=== PATIENT | male | born 1935 | race Caucasian/White ===

== ENCOUNTER 2016-08-03 17:51 | Emergency (ER) | payer MEDICARE, BC ==
[2016-08-03 18:16] VITALS: BP 158/74
--- NOTE | 2016-08-03 19:02 | UC ---
Shortness of Breath HPI - HPI Summary HPI Summary: The patient comes in today for: 1. Shortness of breath: Onset: 2 days ago. Palliative/provocative: Body position makes it worse--laying on the right side does lead to more wheezing. Quality: Dyspnea Region: Lungs. Severity: 10 Time: Constant. Associated symptoms: Event: He was shoveling snow about 2 days ago and had to stop shoveling due to shortness of breath. Exercise limitation: Previous exercise tolerance: Before he had shortness of breath, he was able to climb a flight of steps without shortness of breath. Now, he can still climb a flight of steps, but is short of breath at the top of the stairs. Fever: At home, yesterday, it was 99.1. Today, it was 100.3. Cough: He denies any coughing now compared to before. Rhinitis: None. Previous lung disease: He states that he has had asthma in the past. He is not on any inhalers at this time, and has not had any asthma episodes for "years." Heart disease: He states that he has HTN, mitral valve "might have been a problem" No stents or bypasses. He states that he has "an angiogram and it was all clear--done in a couple of years ago." He denies any previous NV or heart failure. Yet, he states that he was put on a medication which reduced the size of the heart. And he is on digoxin for reasons that he can't explain. He states that he is on Xarelto for transient atrial fibrillation. He denies any peripheral edema, or increase in his weight. He has shortness of breath, but he is not able to tell me if it is worse with laying down. * - History of Current Complaint Chief Complaint: UCRespiratory Stated Complaint: S.O.B. Time Seen by Provider: 08/03/16 18:48 Hx Obtained From: Patient - Allergy/Home Medications Allergies/Adverse Reactions: Allergies Allergy/AdvReac Type Severity Reaction Status Date / Time tape AdvReac Itching Uncoded 08/03/16 18:06 Home Medications: Home Medications Epleronone (NF) [Inspra (NF)] 0.5 tab PO QAM 08/03/16 [History Confirmed ] PMH/Surg Hx/FS Hx/Imm Hx Previously Healthy: No Endocrine History Of: Reports: Dyslipidemia Denies: Diabetes, Thyroid Disease, Hyperthyroidism, Hypothyroidism Cardiovascular History Of: Reports: Cardiac Disorders - PACE MAKER, VALVE PROBLEMS, history of transient a-fib, Hypertension, Pacemaker/ICD - 04/08/2013, Congestive Heart Failure - On digoxin, though the patient states that he does not have CHF., Atrial Fibrillation - transient. Denies: Myocardial Infarction, Deep Vein Thrombosis, Bleeding Disorders Respiratory History Of: Reports: Asthma - On singulair. Denies: COPD, Bronchitis, Pneumonia, Pulmonary Embolism GI/ History Of: Denies: Gastroesophageal Reflux, Ulcer, Gastrointestinal Bleed, Gall Bladder Disease, Kidney Stones, Diverticulitis, Renal Disease, Urosepsis Neurological History Of: Denies: TIA, CVA, Dementia, Seizures, Migraine Psychological History Of: Denies: Anxiety, Depression, Bipolar Disorder, Schizophrenia, Post Traumatic Stress Disorder Cancer History Of: Denies: Lung Cancer, Colorectal Cancer, Breast Cancer, Prostate Cancer, Cervical Cancer Other History Of: Anticoagulant Therapy - Xarelto. Negative For: HIV, Hepatitis B, Hepatitis C - Surgical History Surgical History: Yes Surgery Procedure, Year, and Place: SINUS SURGERY AROUND 1994 LEFT POLYP REMOVED. 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 - Family History Known Family History: Negative: Cardiac Disease, Hypertension - Social History Occupation: Retired Alcohol Use: None Substance Use Type: None Smoking Status (MU): Never Smoked Tobacco - Immunization History Most Recent Influenza Vaccination: 2011 Most Recent Tetanus Shot: <5years Most Recent Pneumonia Vaccination: unknown Review of Systems Constitutional: Negative Skin: Negative Eyes: Negative ENT: Negative Respiratory: Shortness Of Breath, Cough Cardiovascular: Negative Gastrointestinal: Negative Genitourinary: Negative All Other Systems Reviewed And Are Negative: Yes Physical Exam Triage Information Reviewed: Yes Appearance: Well-Appearing, No Pain Distress, Well-Nourished Vital Signs: Initial Vital Signs Temp 101.7 F 08/03/16 18:10 Pulse 99 08/03/16 18:10 Resp 16 08/03/16 18:10 BP 158/74 08/03/16 18:10 Pulse Ox 95 08/03/16 18:10 Vital Signs Reviewed: Yes Eyes: Positive: Conjunctiva Clear. Negative: Discharge ENT: Positive: Hearing grossly normal. Negative: Pharyngeal erythema, Nasal drainage, TM bulging, TM dull, TM red, Tonsillar swelling, Tonsillar exudate Dental: Negative: Gross Decay/Caries @, Dental Fracture @ Neck: Positive: Supple, Nontender, No Lymphadenopathy, Other: - No JVD at 30 degrees up from the horizontal. There is no HJR.. Negative: Nuchal Rigidity Respiratory: Positive: Lungs clear, No respiratory distress, No accessory muscle use. Negative: Crackles, Wheezing Cardiovascular: Positive: RRR, No Murmur Abdomen Description: Positive: Nontender, No Organomegaly, Soft. Negative: Distended, Guarding Musculoskeletal: Positive: Strength Intact, ROM Intact, No Edema Neurological: Positive: Alert, Muscle Tone Normal Psychological: Positive: Age Appropriate Behavior, Consolable Skin: Negative: rashes, breakdown Diagnostics - Laboratory Diagnostic Studies Completed/Ordered: CXR: IMPRESSION: INFILTRATE OVERLYING THE RIGHT LUNG AND RIGHT HILUM COULD REPRESENT PNEUMONIA IN THE. CORRECT CLINICAL SETTING. FOLLOW-UP IMAGING AFTER AN APPROPRIATE COURSE OF THERAPY IS. RECOMMENDED TO ASCERTAIN RESOLUTION. Shortness of Breath Dx - Course Course Of Treatment: Patient was told that his CXR showed pneumonia. He is not confused, but his BUN was greater than 19 in May of 2016. His respiratory rate is less than 30 and his blood pressure is higher than 90/60. He is older than 65 though. Based on this CURB65 score, I suggested that the patient be evaluated in the ER. - Differential Dx/Diagnosis Provider Diagnoses: Pneumonia. - Physician Notification/Consults Discussed Patient Care With: Mi Pagan Time Discussed With Above Provider: 20:02 Discharge - Discharge Plan Condition: Stable Disposition: AGAINST MEDICAL ADVICE Patient Education Materials: Community Acquired Pneumonia (ED) Additional Instructions: Please go directly to the [facility] ER.
[2016-08-03] MEDS ORDERED: Albuterol/Ipratropium NEB.SOL* Albuterol 2.5 MG/Ipratropium 0.5 MG 3 ML INH ONE (19:15)
[2016-08-03] MEDS ORDERED: Albuterol 2.5 MG/3 ML NEB.SOL* (0.083%) ONE (19:24)
[2016-08-03] MEDS ORDERED: Ipratropium 0.5MG/2.5ML NEB* 0.5 MG/2.5 ML NEB.SOLN ONE (19:24)
[2016-08-03] MEDS ORDERED: Ipratropium 0.5MG/2.5ML NEB* 0.5 MG/2.5 ML NEB.SOLN INH ONE (19:36)
[2016-08-03] MEDS ORDERED: Albuterol 2.5 MG/3 ML NEB.SOL* (0.083%) INH ONE (19:37)
--- NOTE | 2016-08-03 19:41 | RAD ---
INDICATION: Dyspnea COMPARISON: Most recent comparison chest x-rays dated April 09, 2013 TECHNIQUE: PA and lateral views of the chest were obtained. FINDINGS: There is been no change in the left upper chest cardiac pacemaker with 2 leads overlying the heart. The heart and mediastinum are normal in size and contour. There is been interval appearance of infiltrate overlying the right upper lung. Similar density is seen along the lateral margin of the right hilum. There is no evidence of large pleural effusion. Visualized bones are normal for the patient's age. There is no radiographic evidence of free air beneath the diaphragm IMPRESSION: INFILTRATE OVERLYING THE RIGHT LUNG AND RIGHT HILUM COULD REPRESENT PNEUMONIA IN THE CORRECT CLINICAL SETTING. FOLLOW-UP IMAGING AFTER AN APPROPRIATE COURSE OF THERAPY IS RECOMMENDED TO ASCERTAIN RESOLUTION.
== END 2016-08-03 20:20 | disposition left against medical advice (07) ==
LOC: UCEAST 17:51
DX: J18.9 Pneumonia, unspecified organism (principal); E78.5 Hyperlipidemia, unspecified; I10 Essential (primary) hypertension; I50.9 Heart failure, unspecified
CPT/HCPCS: 71020; 93005; 99212; G0463; J7644

== ENCOUNTER 2016-08-03 20:48 | Emergency (ER) | payer MEDICARE, BC ==
[2016-08-03] MEDS ORDERED: Ondansetron ODT TAB* 4 MG PO ONE (20:56)
[2016-08-03] MEDS ORDERED: cefTRIAXone(*) 2 GM in NS 0.9% 100 ML* 100 ML IVPB ONE (21:08)
--- NOTE | 2016-08-03 21:16 | ED ---
Shortness of Breath - HPI Summary HPI Summary: Patient presents for evaluation of shortness of breath with exertion for the last 3 days. Patient felt congested for 2 days with dyspnea on exertion while shoveling snow. He had not experienced this during this winter, then today went to a walk in [place] and felt chills with temperature of 102.7F (oral). CXR performed at [facility] in [place] with directions to have ED evaluation. No allev factors, recent hospitalization, antipyretics, or antibiotics. - History of Current Complaint Chief Complaint: EDGeneral Time Seen by Provider: 08/03/16 20:56 Hx Obtained From: Patient Onset/Duration: Gradual Onset Timing: Constant Current Severity: Moderate Dyspnea At: Exertion Associated Signs & Symptoms: Chills - Allergy/Home Medications Allergies/Adverse Reactions: Allergies Allergy/AdvReac Type Severity Reaction Status Date / Time No Known Allergies Allergy Verified 08/03/16 20:56 PMH/Surg Hx/FS Hx/Imm Hx Endocrine/Hematology History: Reports: Hx Anticoagulant Therapy - Xarelto. Denies: Hx Diabetes, Hx Thyroid Disease Cardiovascular History: Reports: Hx Congestive Heart Failure - On digoxin, though the patient states that he does not have CHF., Hx Hypertension, Hx Pacemaker/ICD - 04/08/2013 Denies: Hx Deep Vein Thrombosis, Hx Myocardial Infarction Respiratory History: Reports: Hx Asthma - On singulair. Denies: Hx Chronic Obstructive Pulmonary Disease (COPD), Hx Lung Cancer, Hx Pneumonia, Hx Pulmonary Embolism GI History: Denies: Hx Gall Bladder Disease, Hx Gastrointestinal Bleed, Hx Ulcer, Hx Urosepsis History: Denies: Hx Dialysis, Hx Kidney Stones, Hx Renal Disease Musculoskeletal History: Reports: Hx Arthritis Sensory History: Reports: Hx Contacts or Glasses, Hx Hearing Aid - BILATERAL Opthamlomology History: Reports: Hx Contacts or Glasses Neurological History: Reports: Other Neuro Impairments/Disorders - subdural hematoma- Dr. Meade pt. 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 Infectious Disease History: No Infectious Disease History: Denies: Hx Clostridium Difficile, Hx Hepatitis, Hx Human Immunodeficiency Virus (HIV), Hx of Known/Suspected MRSA, Hx Shingles, Hx Tuberculosis, Hx Known/ Suspected VRE, Hx Known/Suspected VRSA, History Other Infectious Disease, Traveled Outside the [place] in Last 30 Days - Family History Known Family History: Negative: Cardiac Disease, Hypertension - Social History Alcohol Use: None Substance Use Type: Reports: None Smoking Status (MU): Never Smoked Tobacco Review of Systems Positive: Chills. Negative: Fever Positive: Shortness Of Breath. Negative: Cough All Other Systems Reviewed And Are Negative: Yes Physical Exam Triage Information Reviewed: Yes Vital Signs On Initial Exam: Initial Vitals Temp Pulse Resp BP Pulse Ox 98.5 F 82 18 171/52 100 08/03/16 20:52 08/03/16 20:52 08/03/16 20:52 08/03/16 20:52 08/03/16 20:52 Vital Signs Reviewed: Yes Appearance: Positive: Well-Appearing, No Pain Distress, Well-Nourished Skin: Positive: Warm, Skin Color Reflects Adequate Perfusion, Dry Eyes: Positive: Normal, EOMI ENT: Positive: Normal ENT inspection, Hearing grossly normal, Pharynx normal Neck: Positive: Supple, Nontender, No Lymphadenopathy Respiratory/Lung Sounds: Positive: Clear to Auscultation, Decreased Breath Sounds - Bibasilar diminshed breath sounds., Other - L anterior chest wall pacemaker site is nontender. Cardiovascular: Positive: Pulses are Symmetrical in both Upper and Lower Extremities - Paced rhythm Abdomen Description: Positive: Nontender, No Organomegaly, Soft Musculoskeletal: Positive: Normal, Strength/ROM Intact. Negative: Edema Left, Edema Right Neurological: Positive: Normal, Sensory/Motor Intact, Alert, Oriented to Person Place, Time, CN Intact II-III, Reflexes Intact, Normal Gait Diagnostics - Vital Signs Vital Signs Temp Pulse Resp BP Pulse Ox 08/03/16 20:52 98.5 F 82 18 171/52 100 - Laboratory Result Diagrams: 08/03/16 21:40 08/03/16 21:40 Lab Statement: Any lab studies that have been ordered have been reviewed, and results considered in the medical decision making process. Course/Dx - Course Course Of Treatment: I discussed the case with the equipment validation engineer PCP since patient was deferring admission. Night time hospitalist was happy to admit; however, patient again deferred when we both discussed the case with the patient. Return instructions given. - Diagnoses Differential Diagnosis/HQI/PQRI: Positive: CHF, Pneumonia, Unstable Angina, Other - Primary concern for clinical pneumonia with subjective chills, objective fever, diminshed breath sounds, and new MEDLEY. High PORT score and will evaluate for observation admission. Provider Diagnoses: Pneumonia Discharge - Discharge Plan Condition: Improved Disposition: HOME Prescriptions: Amoxicillin CAP* 1,000 mg PO TID 10 Days DOXYcycline CAP(*) [DOXYcycline 100MG CAP(*)] 100 mg PO BID 10 Days Patient Education Materials: Bacterial Pneumonia (ED) Referrals: Woody Curtis MD [Primary Care Provider] - 2 Days
[2016-08-03] MEDS ORDERED: NS 0.9% 1000 ML* 1,000 ML IV ONE (21:47)
[2016-08-03 21:54] LABS: Hematocrit 39 % (42-52); Hemoglobin 13.1 g/dl (14.0-18.0); Mean Corpuscular HGB Conc 34 g/dl (31-36); Mean Corpuscular Hemoglobin 30 pg (27-31); Mean Corpuscular Volume 89 fL (80-94); Mean Platelet Volume 8 um3 (7.4-10.4); Red Blood Count 4.38 10^6/ul (4.0-5.4); Red Cell Distribution Width 14 % (10.5-15); White Blood Count 6.8 10^3/ul (3.5-10.8)
[2016-08-03 22:07] LABS: BUN/Creatinine Ratio 17.1 (8-20); Calcium 8.8 mg/dL (8.6-10.3); EGFR African American 62.6 (>60); EGFR Non-African American 48.6 (>60)
[2016-08-03 22:09] LABS: Troponin I 0.01 ng/mL (<0.04)
--- NOTE | 2016-08-03 22:27 | RAD ---
INDICATION: Shortness of breath COMPARISON: Same day chest x-ray demonstrating possible right lung infiltrate. TECHNIQUE: Axial source images of the chest were acquired without intravenous contrast from just above the lung apices to the base of the diaphragm. Coronal and sagittal reconstructed images were acquired. FINDINGS: Corresponding to findings on the same day chest x-ray there are patchy infiltrates in the right upper lobe. Elsewhere the lungs are adequately aerated. The heart is normal in size. There is no evidence of pericardial effusion. There is no evidence of aortic aneurysm or dissection. 2-lead left upper chest cardiac pacemaker appears to be appropriately position. There is no readily apparent mediastinal, hilar, or axillary lymphadenopathy. The osseous structures appear normal. Calcified granulomas are noted in the liver and spleen. Along the lateral mid level right kidney there is an exhibit phasic solid nodule measuring approximately 2 cm (axial image 58 and coronal image 59). 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 IMPRESSION: 1. Corresponding to images of the same day chest x-ray there are patchy infiltrates in the right upper lobe. An infectious or inflammatory etiology is considered most likely but follow-up imaging after an appropriate course of therapy is advised to ascertain resolution. 2. There is a soft tissue density is a vague nodule along the lateral aspect of the right kidney. There are no previous CTs for comparison to comment on chronicity. On a nonemergent basis further characterization of this nodule and the patient's renal cysts can be made with renal ultrasound. 3. 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
[2016-08-03] MEDS ORDERED: Albuterol HFA INHALER* 8 gm MDI INH ONE (22:47)
[2016-08-03 23:16] VITALS: BP 122/43
== END 2016-08-03 23:26 | disposition home or self-care (01) ==
LOC: ED 20:48
DX: J18.9 Pneumonia, unspecified organism (principal); R68.83 Chills (without fever); R06.02 Shortness of breath
CPT/HCPCS: 36415; 71020; 71250; 80048; 83605; 83880; 84484; 85025; 87040; 93005; 99212; 99283; A9270-GY; G0463; J0696; J7644

== ENCOUNTER 2016-11-14 17:27 | Emergency (ER) | payer MEDICARE, BC ==
[2016-11-14 18:14] VITALS: BP 147/56
--- NOTE | 2016-11-14 18:47 | UC ---
Throat Pain/Nasal Larry HPI - HPI Summary HPI Summary: complaint of nasal congestion and cough that started approx 2 days ago productive cough sometimes yellowish sputum mild sore throat for 1 day, feesl like his chest feesl tight- denies shortness of breath and chest pain, edema dizziness denies fever and chills, headaches, fatigue recent pneumonia end of july with similiar symptoms- tx with amox and doxy Dr Curtis - History of Current Complaint Chief Complaint: UCRespiratory Stated Complaint: COUGH, AND CHEST CONGESTION Time Seen by Provider: 11/14/16 18:39 Hx Obtained From: Patient - Allergies/Home Medications Allergies/Adverse Reactions: Allergies Allergy/AdvReac Type Severity Reaction Status Date / Time No Known Allergies Allergy Verified 11/14/16 18:14 PMH/Surg Hx/FS Hx/Imm Hx Previously Healthy: Yes Endocrine History Of: Reports: Dyslipidemia Denies: Diabetes, Thyroid Disease, Hyperthyroidism, Hypothyroidism Cardiovascular History Of: Reports: Cardiac Disorders, Hypertension, Pacemaker/ ICD, Congestive Heart Failure - On digoxin, though the patient states that he does not have CHF., Atrial Fibrillation - transient. Denies: Myocardial Infarction, Deep Vein Thrombosis, Bleeding Disorders Respiratory History Of: Reports: COPD Denies: Asthma, Bronchitis, Pneumonia, Pulmonary Embolism GI/ History Of: Denies: Gastroesophageal Reflux, Ulcer, Gastrointestinal Bleed, Gall Bladder Disease, Kidney Stones, Diverticulitis, Renal Disease, Urosepsis Neurological History Of: Denies: TIA, CVA, Dementia, Seizures, Migraine Psychological History Of: Denies: Anxiety, Depression, Bipolar Disorder, Schizophrenia, Post Traumatic Stress Disorder Cancer History Of: Denies: Lung Cancer, Colorectal Cancer, Breast Cancer, Prostate Cancer, Cervical Cancer Other History Of: Anticoagulant Therapy - Xarelto. Negative For: HIV, Hepatitis B, Hepatitis C - Surgical History Surgical History: Yes Surgery Procedure, Year, and Place: SINUS SURGERY AROUND 1994 LEFT POLYP REMOVED. 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 - Family History Known Family History: Negative: Cardiac Disease, Hypertension, Diabetes - Social History Occupation: Retired Lives: With Family Alcohol Use: None Substance Use Type: None Smoking Status (MU): Never Smoked Tobacco - Immunization History Most Recent Influenza Vaccination: 2011 Most Recent Tetanus Shot: <5years Most Recent Pneumonia Vaccination: unknown Review of Systems Constitutional: Negative Skin: Negative Eyes: Negative ENT: Nasal Discharge Respiratory: Cough Cardiovascular: Negative Gastrointestinal: Negative Genitourinary: Negative Motor: Negative Neurovascular: Negative Musculoskeletal: Negative Neurological: Negative Psychological: Negative All Other Systems Reviewed And Are Negative: Yes Physical Exam Triage Information Reviewed: Yes Appearance: No Pain Distress, Well-Nourished, Thin Vital Signs: Initial Vital Signs Temp 98.8 F 11/14/16 18:06 Pulse 73 11/14/16 18:06 Resp 20 11/14/16 18:06 BP 147/56 11/14/16 18:06 Pulse Ox 99 11/14/16 18:06 Vital Signs Reviewed: Yes Eyes: Positive: Conjunctiva Clear ENT: Positive: Pharynx normal, Nasal congestion, Nasal drainage, TMs normal, Other: - [place] wears bilateral hearing aides Neck: Positive: No Lymphadenopathy Respiratory: Positive: Decreased breath sounds. Negative: Rhonchi, Stridor, Wheezing Cardiovascular: Positive: RRR, No Murmur, Pulses Normal Abdomen Description: Positive: Nontender, Soft Bowel Sounds: Positive: Present Musculoskeletal: Positive: No Edema Neurological: Positive: Alert Psychological Exam: Normal Skin Exam: Normal Throat Pain/Nasal Course/Dx - Differential Dx/Diagnosis Differential Diagnosis/HQI/PQRI: URI, Other - bronchitis, pneumonia Provider Diagnoses: bronchitis Discharge - Discharge Plan Condition: Stable Disposition: HOME Patient Education Materials: Acute Bronchitis (ED) Referrals: Woody Curtis MD [Primary Care Provider] - Additional Instructions: Increase fluids and rest Take acetaminophen for fever or pain Please review your discharge instructions. If your symptoms do not improve please call your primary care provider or return to urgent care.
--- NOTE | 2016-11-14 19:16 | RAD ---
INDICATION: Cough COMPARISON: Most recent comparison chest x-rays dated September 03, 2016 TECHNIQUE: PA and lateral views of the chest were obtained. FINDINGS: Left upper chest cardiac pacemaker with 2 leads overlying the heart is stable. The heart and mediastinum are normal in size and contour. There is mild peribronchial cuffing. The lungs are grossly clear. There is no evidence of large pleural effusion. Visualized bones are normal for the patient's age. There is no radiographic evidence of free air beneath the diaphragm IMPRESSION: MILD PERIBRONCHIAL THICKENING OF THE CENTRAL AIRWAYS COULD BE SEEN IN THE SETTING OF BRONCHITIS OR VIRAL PNEUMONIA.
== END 2016-11-14 19:30 | disposition home or self-care (01) ==
LOC: UCEAST 17:27
DX: J40 Bronchitis, not specified as acute or chronic (principal); E78.5 Hyperlipidemia, unspecified; I10 Essential (primary) hypertension; I50.9 Heart failure, unspecified; I48.91 Unspecified atrial fibrillation; Z79.01 Long term (current) use of anticoagulants; Z95.0 Presence of cardiac pacemaker
CPT/HCPCS: 71020; 99211; G0463

== ENCOUNTER 2018-02-02 07:05 | Day surgery (SDC) | payer MEDICARE, BC ==
[~2018-02-02 07:05] MED LIST: Buffered Lidocaine 0.9% SYRIN* 5 ML/SYR SYRINGE INTRADERM ONE
[2018-02-02] MEDS ORDERED: Phenylephrine 2.5% OPTH.SOL* 2 ML BTL ONE (07:57)
[2018-02-02] MEDS ORDERED: Tetracaine 0.5% OPTH.SOL 4 ML* 1 DROP BTL ONE (07:57)
[2018-02-02] MEDS ORDERED: Povidone Iodine 5% OPTH* 30 ML BTL ONE (07:57)
[2018-02-02] MEDS ORDERED: acetaZOLAMIDE TAB* 250 MG ONE (07:57)
[2018-02-02] MEDS ORDERED: Cyclopentolate 1% OPTH.SOL* 2 ML BTL ONE (07:57)
[2018-02-02] MEDS ORDERED: Neomycin/Polymy/Dex OPHTH.OIN* 3.5 GM ONE (07:57)
[2018-02-02] MEDS ORDERED: Lidocaine 1%* 5 ML VIAL ONE (07:57)
[2018-02-02] MEDS ORDERED: Tropicamide 1% OPTH.SOL* BTL ONE (07:57)
[2018-02-02] MEDS ORDERED: Ketorolac 0.5% OPHTH (NF) 0.5 % 5 ML BTL ONE (07:57)
[2018-02-02] MEDS ORDERED: Midazolam* 1 MG/ML 2 ML VIAL (2 MG) ONE (08:00)
[2018-02-02 09:10] VITALS: BP 144/70
--- NOTE | 2018-02-02 22:00 | OP ---
OPERATIVE REPORT: DATE OF OPERATION: 02/02/18 - HARI DATE OF : 35 SURGEON: Pradeep Stock MD ANESTHESIA: Monitored anesthesia care. PRE-OP DIAGNOSIS: Cataract, left eye. POST-OP DIAGNOSIS: Cataract, left eye. OPERATIVE PROCEDURE: Extracapsular cataract extraction of the left eye with intraocular lens implant. IMPLANTS: SN60WF 19.0 diopter lens to the left eye. COMPLICATIONS: None. DESCRIPTION OF PROCEDURE: The patient was given phenylephrine 2.5% and cyclopentolate 1% eye drops to the operative eye in the preoperative area. The patient was taken to the operating room where a time-out was taken to identify the correct patient, site, and side of surgery. The patient's left eye was prepped and draped in the usual sterile fashion with 5% Betadine. A second time -out was taken to verify the correct patient, site, and side of surgery, and correct lens implant. A lid speculum was placed to the left eye. A 1-mm paracentesis was created at the inferotemporal position. Preservative free 1% lidocaine was injected into the anterior chamber followed by DisCoVisc. A 2.75 mm triplanar incision was created at the superotemporal position. A cystotome initiated the capsulorrhexis, which was completed with Utrata forceps. Hydrodissection of the lens was performed with BSS on a cannula. The lens could be spun in the capsular bag. The phacoemulsification handpiece was used with a divide and conquer technique to remove to nucleus with 15.91 CDE. The I/ A handpiece then removed the residual cortical lens material. DisCoVisc was injected to inflate the capsular bag. The planned SN60WF 19.0 diopter lens was injected into the capsular bag. The residual DisCoVisc was removed from the eye with a I/A handpiece. The corneal incisions were hydrated and no leaks occurred at physiologic pressure around 20 mmHg per palpation. The lid speculum was removed and drapes removed. Maxitrol ointment was placed to the surface of the operative eye. An adhesive patch and shield was then placed on the operative eye. The patient was taken to the postoperative area in stable condition. [id number]/[facility] #: [id number] [facility]
== END 2018-02-02 09:17 | disposition home or self-care (01) ==
LOC: OREAST 07:05
PROVIDERS: ATTEND Student in an Organized Health Care Education/Training Program
DX: H25.12 Age-related nuclear cataract, left eye (principal); I48.91 Unspecified atrial fibrillation; Z79.01 Long term (current) use of anticoagulants; Z87.891 Personal history of nicotine dependence; I10 Essential (primary) hypertension; Z85.46 Personal history of malignant neoplasm of prostate; E78.5 Hyperlipidemia, unspecified; I42.9 Cardiomyopathy, unspecified; Z95.0 Presence of cardiac pacemaker; I34.0 Nonrheumatic mitral (valve) insufficiency
CPT/HCPCS: A9270-GY; J2250; V2632

== ENCOUNTER 2018-12-15 08:51 | Emergency (ER) | payer MEDICARE, BC ==
[2018-12-15 09:06] VITALS: BP 184/78
--- NOTE | 2018-12-15 09:53 | UC ---
Shoulder Pain HPI - HPI Summary HPI Summary: right shoulder pain x 1 day pain severe 5 out of 10 , worse with movement , better if in a sling sudden onset pain as he was pulling blanket on himself, felt a pop - History of Current Complaint Chief Complaint: UCUpperExtremity Stated Complaint: RT SHOULDER/ARM INJURY Time Seen by Provider: 12/15/18 09:02 Hx Obtained From: Patient Onset/Duration: Sudden Onset, Lasting Days - 1, Still Present Timing: Constant Severity Initially: Moderate Severity Currently: Moderate Pain Intensity: 5 Character: Aching Aggravating Factor(s): Movement, Lifting, Flexion, Extension Alleviating Factor(s): Rest, Other - sling Associated Signs And Symptoms: Negative: Swelling, Redness, Bruising, Fever, Weakness, Numbness/Tingling - Allergies/Home Medications Allergies/Adverse Reactions: Allergies Allergy/AdvReac Type Severity Reaction Status Date / Time No Known Allergies Allergy Verified 12/15/18 09:05 PMH/Surg Hx/FS Hx/Imm Hx Cardiovascular History: Cardiac Disease, Hypertension, Atrial Fibrillation Respiratory History: COPD, Asthma Other History Of: Anticoagulant Therapy - Xarelto. Negative For: HIV, Hepatitis B, Hepatitis C - Surgical History Surgical History: Yes Surgery Procedure, Year, and Place: SINUS SURGERY AROUND 1994 LEFT POLYP REMOVED. 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 pacemaker placed 3-4 years ago - Family History Known Family History: Negative: Cardiac Disease, Hypertension, Diabetes - Social History Alcohol Use: Occasionally Substance Use Type: None Smoking Status (MU): Former Smoker Amount Used/How Often: smoked for 20+ YEARS 1PPD When Did the Patient Quit Smoking/Using Tobacco: 1981 - Immunization History Most Recent Influenza Vaccination: 2011 Most Recent Tetanus Shot: <5years Most Recent Pneumonia Vaccination: unknown Review of Systems All Other Systems Reviewed And Are Negative: Yes Is Patient Immunocompromised?: No Physical Exam Triage Information Reviewed: Yes Appearance: Well-Appearing, No Pain Distress, Well-Nourished Vital Signs: Initial Vital Signs Temp 98.2 F 12/15/18 08:58 Pulse 70 12/15/18 08:58 Resp 18 12/15/18 08:58 BP 184/78 12/15/18 08:58 Pulse Ox 96 12/15/18 08:58 Vital Signs Reviewed: Yes Eye Exam: Normal Eyes: Positive: Conjunctiva Clear ENT: Positive: Normal ENT inspection, Hearing grossly normal, Pharynx normal Neck: Positive: Supple, Nontender, No Lymphadenopathy Respiratory: Positive: Chest non-tender, Lungs clear, Normal breath sounds Cardiovascular: Positive: RRR, No Murmur, Pulses Normal Musculoskeletal: Positive: Other: - right shoulder : no swelling, no erythema, mild diffuse tenderness, pain with flexion and extension, limite strength Diagnostics - Radiology No standard instances Radiology Interpretation Completed By: Radiologist Summary of Radiographic Findings: xray right shoulder : IMPRESSION: Degenerative changes of the glenohumeral joint. No fracture is identified. Shoulder Course/Dx - Differential Dx/Diagnosis Provider Diagnosis: Right shoulder injury Discharge - Sign-Out/Discharge Documenting (check all that apply): Patient Departure All imaging exams completed and their final reports reviewed: Yes - Discharge Plan Condition: Stable Disposition: HOME Patient Education Materials: Shoulder Pain (ED) Referrals: Nima Meza NP [Primary Care Provider] - Rhonda Saunders MD [Medical Doctor] - As Soon As Possible - Billing Disposition and Condition Condition: STABLE Disposition: Home
== END 2018-12-15 10:05 | disposition home or self-care (01) ==
LOC: UCEAST 08:51
DX: S49.91XA Unspecified injury of right shoulder and upper arm, initial encounter (principal); X50.0XXA Overexertion from strenuous movement or load, initial encounter; Y93.89 Activity, other specified; Y92.9 Unspecified place or not applicable; I10 Essential (primary) hypertension; I48.91 Unspecified atrial fibrillation; Z79.01 Long term (current) use of anticoagulants; Z87.891 Personal history of nicotine dependence
CPT/HCPCS: 99211; G0463

== ENCOUNTER 2020-02-02 18:02 | Inpatient (IN) ==
[2020-02-02 18:37] LABS: ABS Basophils 0.1 10^3/ul (0-0.2); ABS Eosinophils 0.7 10^3/ul (0-0.6); ABS Monocytes 0.9 10^3/ul (0-0.8); ABS Neutrophils 4.7 10^3/ul (1.5-7.7); Eosinophil % 9.4 %; Hematocrit 24 % (42-52); Hemoglobin 8.1 g/dL (14.0-18.0); Lymphocyte % 14.1 %; Mean Corpuscular HGB Conc 34 g/dL (31-36); Mean Corpuscular Hemoglobin 31 pg (27-31); Mean Corpuscular Volume 92 fL (80-94); Mean Platelet Volume 7.7 fL (7.4-10.4); Nucleated Red Blood Cells % 0.1; Platelet Count 259 10^3/uL (150-450); Red Blood Count 2.59 10^6 /uL (4.18-5.48); Red Cell Distribution Width 16 % (10-15); White Blood Count 7.5 10^3/uL (3.5-10.8)
[2020-02-02 18:55] LABS: ALT 11 U/L (7-52); AST 13 U/L (13-39); Albumin 3.7 g/dL (3.2-5.2); Albumin/Globulin Ratio 1.5 (1-3); Alkaline Phosphatase 56 U/L (34-104); BUN/Creatinine Ratio 29.7 (8-20); Blood Urea Nitrogen 49 mg/dL (6-24); C Reactive Protein < 1.00 mg/L (<8.01); CO2 Carbon Dioxide 23 mmol/L (22-32); Calcium 8.9 mg/dL (8.6-10.3); EGFR African American 48.3 (>60); EGFR Non-African American 39.9 (>60); Globulin 2.4 g/dL (2-4); Glucose 95 mg/dL (70-100); Sodium 138 mmol/L (135-145); Total Protein 6.1 g/dL (6.4-8.9)
[2020-02-02 19:00] LABS: Anion Gap 3 mmol/L (2-11); Chloride 112 mmol/L (101-111)
[2020-02-02] MEDS ORDERED: NS 0.9% 1000 ml BAG 1,000 ML IV ONE (19:01)
[2020-02-02 19:03] LABS: Activated Partial Thrombo Time 27.7 seconds (26.0-38.0); INR 1.07 (0.82-1.09)
[2020-02-02] MEDS ORDERED: Ondansetron 4 mg VIAL 2 MG/ML 2 ml VIAL IV PRN (20:03)
[2020-02-02] MEDS ORDERED: Al Hydrox/Mg Hydrox/Simet LIQ 30 ML UDC PO PRN (20:03)
[2020-02-02 20:53] LABS: % Iron Saturation 18 % (15-55); Iron 64 ug/dL (50-212); Total Iron Binding Capacity 353 mcg/dL (250-450); Transferrin 252 mg/dL (203-362); Unsaturated Iron Binding < 338 ug/dL
[2020-02-02] MEDS ORDERED: Pantoprazole VIAL 40 MG VIAL IV SCH (21:00)
[2020-02-02 21:18] LABS: Ferritin 28.1 ng/mL (24-336)
[2020-02-03] MEDS ORDERED: NS 0.9% 1000 ml BAG 1,000 ML IV SCH (04:15)
[2020-02-03 06:45] LABS: ABS Basophils 0.1 10^3/ul (0-0.2); ABS Eosinophils 0.5 10^3/ul (0-0.6); ABS Monocytes 0.6 10^3/ul (0-0.8); ABS Neutrophils 3.2 10^3/ul (1.5-7.7); Eosinophil % 9.4 %; Hematocrit 20 % (42-52); Hemoglobin 6.8 g/dL (14.0-18.0); Lymphocyte % 18.4 %; Mean Corpuscular HGB Conc 35 g/dL (31-36); Mean Corpuscular Hemoglobin 32 pg (27-31); Mean Corpuscular Volume 92 fL (80-94); Mean Platelet Volume 8.1 fL (7.4-10.4); Platelet Count 208 10^3/uL (150-450); Red Blood Count 2.13 10^6 /uL (4.18-5.48); Red Cell Distribution Width 15 % (10-15); White Blood Count 5.3 10^3/uL (3.5-10.8)
[2020-02-03 06:52] LABS: INR 1.07 (0.82-1.09)
[2020-02-03 07:01] LABS: BUN/Creatinine Ratio 29.7 (8-20); Calcium 8.3 mg/dL (8.6-10.3); EGFR African American 54.8 (>60); EGFR Non-African American 45.3 (>60); Potassium 4.7 mmol/L (3.5-5.0)
[2020-02-03] MEDS: CMCS: Epleronone 25 mg TAB (NF) PO SCH (07:15)
[2020-02-03 08:58] LABS: Hematocrit 21 % (42-52); Hemoglobin 7.1 g/dL (14.0-18.0)
[2020-02-03] MEDS ORDERED: Midazolam 10 mg/10 ml VIAL 1 mg/ml 10 ml VIAL (10 mg) ONE (17:09)
[2020-02-03] MEDS ORDERED: fentaNYL 100 mcg/2 ml 50 MCG/ML VIAL ONE (17:09)
[2020-02-03 18:44] LABS: Hematocrit 20 % (42-52); Hemoglobin 6.8 g/dL (14.0-18.0); Mean Corpuscular HGB Conc 34 g/dL (31-36); Mean Corpuscular Hemoglobin 31 pg (27-31); Mean Corpuscular Volume 92 fL (80-94); Mean Platelet Volume 7.9 fL (7.4-10.4); Platelet Count 220 10^3/uL (150-450); Red Blood Count 2.17 10^6 /uL (4.18-5.48); Red Cell Distribution Width 15 % (10-15); White Blood Count 4.4 10^3/uL (3.5-10.8)
[2020-02-03] MEDS: Pantoprazole VIAL 40 MG VIAL IV SCH (21:40)
[2020-02-04 02:01] LABS: Hematocrit 21 % (42-52); Mean Corpuscular HGB Conc 34 g/dL (31-36); Mean Corpuscular Hemoglobin 32 pg (27-31); Mean Corpuscular Volume 92 fL (80-94); Mean Platelet Volume 7.5 fL (7.4-10.4); Platelet Count 216 10^3/uL (150-450); Red Blood Count 2.22 10^6 /uL (4.18-5.48); Red Cell Distribution Width 15 % (10-15); White Blood Count 5.5 10^3/uL (3.5-10.8)
[2020-02-04 07:19] LABS: Calcium 8.3 mg/dL (8.6-10.3); EGFR African American 65.4 (>60); Potassium 4.4 mmol/L (3.5-5.0)
[2020-02-04] MEDS: CMCS: Epleronone 25 mg TAB (NF) PO SCH (08:18)
[2020-02-04 08:46] LABS: Hematocrit 20 % (42-52); Hemoglobin 6.9 g/dL (14.0-18.0); Mean Corpuscular HGB Conc 34 g/dL (31-36); Mean Corpuscular Hemoglobin 32 pg (27-31); Mean Corpuscular Volume 92 fL (80-94); Mean Platelet Volume 8.3 fL (7.4-10.4); Platelet Count 210 10^3/uL (150-450); Red Blood Count 2.19 10^6 /uL (4.18-5.48); Red Cell Distribution Width 16 % (10-15); White Blood Count 4.8 10^3/uL (3.5-10.8)
[2020-02-04] MEDS ORDERED: Iron Sucrose 200 MG in NS 0.9% 100 ml BAG 100 ML IVPB ONE (09:00)
[2020-02-04] MEDS: Pantoprazole VIAL 40 MG VIAL IV SCH ×2 (11:28→22:03)
[2020-02-04 16:23] LABS: Hematocrit 24 % (42-52); Hemoglobin 8.5 g/dL (14.0-18.0)
[2020-02-05 05:33] LABS: Hematocrit 24 % (42-52); Hemoglobin 8.4 g/dL (14.0-18.0); Mean Corpuscular HGB Conc 35 g/dL (31-36); Mean Corpuscular Hemoglobin 32 pg (27-31); Mean Corpuscular Volume 93 fL (80-94); Mean Platelet Volume 7.8 fL (7.4-10.4); Platelet Count 215 10^3/uL (150-450); Red Blood Count 2.63 10^6 /uL (4.18-5.48); Red Cell Distribution Width 15 % (10-15); White Blood Count 6.2 10^3/uL (3.5-10.8)
[2020-02-05 05:48] LABS: BUN/Creatinine Ratio 23.6 (8-20); Calcium 8.4 mg/dL (8.6-10.3); EGFR African American 56.6 (>60); EGFR Non-African American 46.7 (>60); Potassium 4.5 mmol/L (3.5-5.0)
[2020-02-05] MEDS: Pantoprazole VIAL 40 MG VIAL IV SCH (09:07)
[2020-02-05] MEDS: CMCS: Epleronone 25 mg TAB (NF) PO SCH (09:08)
[2020-02-05 10:15] VITALS: BP 110/40
== END 2020-02-05 12:45 | disposition home or self-care (01) | DRG 811 ==
LOC: MED 18:02 → ED 18:02 → OBSVTOIN 20:03 → MED 22:32
PROVIDERS: ADMIT Pediatrics; ATTEND Internal Medicine